=== PATIENT | female | born 1945 | race Caucasian/White ===

== ENCOUNTER 2017-01-17 12:49 | Emergency (ER) | payer MEDICARE ==
[~2017-01-17] VITALS: Ht 154.9 cm; Wt 72.8 kg
[~2017-01-17 12:49] MED LIST: CALC600T44 PO; CYMB60CA PO; DIPH1TAB36 PO; FLON0.053; LEVO.025 PO; NEBI5 PO; OCUV PO; PROT40TA PO; ROSU40 PO; VASO10TA8 PO; VITATAB25 PO; ZYRT10TA12 PO
[2017-01-17 12:55] VITALS: BP 132/67; PULSE 63; RESP 16; TEMP 98.4; O2SAT 97
[2017-01-17] MEDS ORDERED: ATEN50TA PO (13:11)
[2017-01-17] MEDS ORDERED: LEVO25TA4 PO (13:11)
[2017-01-17] MEDS ORDERED: FURO20TA PO (13:11)
[2017-01-17] MEDS ORDERED: FLUT50SP EACH NARE (13:11)
[2017-01-17] MEDS ORDERED: DULO1CAP3 PO (13:11)
[2017-01-17] MEDS ORDERED: ENAL20TA PO (13:11)
[2017-01-17] MEDS ORDERED: VITA1000 PO (13:12)
[2017-01-17] MEDS ORDERED: ROSU1TAB10 PO (13:12)
[2017-01-17] MEDS ORDERED: ADVI200T17 PO (13:12)
[2017-01-17] MEDS ORDERED: PANT40TA3 PO (13:12)
[2017-01-17] MEDS ORDERED: RESP: LIDOCAINE HCL 4% PF 5 ML NEB NEB ONE (13:15)
[2017-01-17] MEDS ORDERED: predniSONE 20 MG TAB PO ONE (13:15)
--- NOTE | 2017-01-17 13:17 | PD ---
HPI Chief Complaint: Respiratory Symptoms Time Seen by Provider: 13:04 Travel History International Travel<30 days: No Contact w/Intl Traveler<30days: No Traveled to known affect area: No History of Present Illness HPI The patient is a 72-year-old female who presents emergency department for cough. The patient states she developed a dry mostly nonproductive cough for one week ago. The patient was prescribed azithromycin by her primary physician, Dr. Sylvia Garcia. The patient took the Zithromax, however, continues to have a dry nonproductive cough. She also complains of back pain secondary to the coughing. She denies any outright shortness of breath, anterior chest pain, nausea, vomiting, or abdominal pain. She denies any current fever, chills , or sweats. She does have a history of pneumonia and bronchitis, denies any history of COPD, CHF, or tobacco use. Symptoms are mild to moderate, there are no current alleviating factors, possibly exacerbated by underlying pneumonia. She also complains of mild fatigue. PFSH Past Medical History Blood Disorders: No Anxiety: Yes Depression: Yes Cancer: No Cardiovascular Problems: No High Cholesterol: Yes Chemotherapy: Yes (2006) Diabetes: No Diminished Hearing: Yes (HEARING AIDES) Endocrine: Yes Gastrointestinal Disorders: Yes (GERD) GERD: Yes Genitourinary: No Hepatitis: No Hiatal Hernia: No Hypertension: Yes Immune Disorder: No Musculoskeletal: Yes (ARTHRITIS) Neurologic: No Psychiatric: Yes Reproductive: No Respiratory: Yes (PNA, bronchitis ) Thyroid Disease: Yes Influenza Vaccination: Yes ?: Not Past Surgical History Abdominal Surgery: Yes (2001 UMBILICAL HERNIA) AICD: No Arteriovenous Shunt: No Body Medical Devices: NONE Gynecologic Surgery: Yes (2005 HYSTERECTOMY ; 76' AND 78' D&C ; 72' TUBAL LIGATION) Hysterectomy: Yes Insulin Pump: No Joint Replacement: No Oral Surgery: Yes (T&A 194) Pacemaker: No Other Surgery: Yes (HIATEL HERNIA) Social History Alcohol Use: Yes Tobacco Use: No Substance Use: No Allergies-Medications (Allergen,Severity, Reaction): Coded Allergies: Lamisil (Unverified Allergy, Mild, STOMACH UPSET, 01/17/17) Oxycontin (Verified Adverse Reaction, Severe, PERMANENT BOWEL PROBLEMS SINCE TAKING MEDICINE, 01/17/17) 01/11/06: PER H/P OF DR SAMUELS RXN TO PAIN MEDICATIONS IS NOT A TRUE ALLERGY BUT A BAD REACTION. Niacin (Unverified Adverse Reaction, Mild, RED FACE, 01/17/17) Premarin (Unverified Adverse Reaction, Mild, CREAM - BAD DREAMS, 01/17/17) Uncoded Allergies: ATELVIA (Adverse Reaction, Mild, BAD DREAMS, 07/09/13) Reported Meds & Prescriptions Reported Meds & Active Scripts Active Ventolin Hfa 18 GM Inh (Albuterol Sulfate) 90 Mcg/Act Aer 2 Puff INH Q6H PRN Deltasone (Prednisone) 20 Mg Tab 40 Mg PO DAILY 4 Days Reported Advil Pm (Ibuprofen-Diphenhydramine) 200-38 Mg Tab 1 Tab PO HS PRN Vitamin D-1000 (Cholecalciferol) 1,000 Unit Tab 50,000 Units PO WEEKLY Rosuvastatin (Rosuvastatin Calcium) 40 Mg Tab 40 Mg PO HS Pantoprazole (Pantoprazole Sodium) 40 Mg Tab 40 Mg PO DAILY Levothyroxine (Levothyroxine Sodium) 25 Mcg Tab 25 Mcg PO DAILY Fluticasone Nasal [place] 50 Mcg/Act Naspr 50 Mcg EACH NARE BID 50 mcg/spray Furosemide 20 Mg Tab 20 Mg PO DAILY Enalapril (Enalapril Maleate) 20 Mg Tab 20 Mg PO DAILY Duloxetine DR (Duloxetine HCl) 60 Mg Capdr 60 Mg PO DAILY Atenolol 50 Mg Tab 50 Mg PO DAILY Review of Systems Except as stated in HPI: all other systems reviewed are Neg General / Constitutional: No: Fever Cardiovascular: No: Chest Pain or Discomfort Respiratory: Positive: Cough Gastrointestinal: No: Nausea, Vomiting Musculoskeletal: Positive: Pain (back pain secondary to coughing) Physical Exam Narrative GENERAL: Awake, alert, very pleasant 72-year-old female who appears her stated age and is in no acute respiratory distress. SKIN: Focused skin assessment warm/dry. HEAD: Atraumatic. Normocephalic. EYES: No injection or drainage. ENT: No nasal bleeding or discharge. Mucous membranes pink and moist. NECK: Trachea midline. No JVD. CARDIOVASCULAR: Regular rate and rhythm. No murmur appreciated. RESPIRATORY: No accessory muscle use. Late expiratory wheeze in the lower lobes bilaterally. Good air movement. GASTROINTESTINAL: Abdomen soft, non-tender, nondistended. No rebound tenderness. MUSCULOSKELETAL: No obvious deformities. No clubbing. No cyanosis. No edema. NEUROLOGICAL: Awake and alert. No obvious cranial nerve deficits. Motor grossly within normal limits. Normal speech. PSYCHIATRIC: Appropriate mood and affect; insight and judgment normal. Data Data Last Documented VS Vital Signs Date Time Temp Pulse Resp B/P Pulse Ox O2 Delivery O2 Flow Rate FiO2 01/17/17 14:26 98 01/17/17 13:26 18 01/17/17 12:55 98.4 63 132/67 Orders Oximetry (01/17/17 13:04) Chest, Single Ap (01/17/17 13:04) Albuterol-Ipratropium Neb (Duoneb Neb) (01/17/17 13:15) Prednisone (Deltasone) (01/17/17 13:15) Lidocaine Pf 4% Neb (Lidocaine Pf 4% Neb (01/17/17 13:15) MDM Medical Decision Making Medical Screen Exam Complete: Yes Emergency Medical Condition: Yes Medical Record Reviewed: Yes Interpretation(s) Chest x-rays unremarkable Last Impressions Chest X-Ray 01/17/17 1304 Signed Impressions: Service Date/Time: Tuesday, January 17, 2017 13:19 - CONCLUSION: No acute disease. Otilio Quan MD FACR Differential Diagnosis Differential diagnoses includes bronchitis, pneumonia, pulmonary edema, congestive heart failure, myopathy, pleural effusion, pulmonary embolism, URI, pneumothorax. Narrative Course The patient's vitals unremarkable and she has already finished Zithromax for presumed pneumonia by her primary physician. The patient was administered prednisone 60 mg orally, duo nebs 2 with respiratory lidocaine and chest x-ray was obtained. Chest x-ray was unremarkable. The patient be discharged home on prednisone and albuterol inhaler. She will be provided a copy of her x-ray report at discharge. She is advised to follow-up with her primary physician, Dr. Garcia, later this week. Diagnosis Primary Impression: Bronchitis Patient Instructions: General Instructions Additional Instructions: Medications as directed. Follow-up with your primary physician. Please provide the patient a copy of her x-ray results at discharge. Return if symptoms worsen or progress. Med/Other Pt SpecificInfo: Prescription(s) given Scripts Albuterol 18 GM Inh (Ventolin Hfa 18 GM Inh)90 Mcg/Act Aer2 Puff INH Q6H PRN ( SHORTNESS OF BREATH) #1 INHALER Ref 0 Prov:Jensen Coppola MD 01/17/17 Prednisone (Deltasone)20 Mg Tab40 Mg PO DAILY 4 Days Ref 0 Prov:Jensen Coppola MD 01/17/17 Disposition: 01 DISCHARGE HOME Condition: Stable Jensen Coppola MD Jan 17, 2017 13:17
[2017-01-17] MEDS: RESP: ALBUTEROL 2.5 MG/IPRATROPIUM 0.5 MG NEB (SCH) INH ×2 (13:21→13:22)
[2017-01-17 13:26] VITALS: RESP 18; O2SAT 97
[2017-01-17] MEDS ORDERED: PRED-503 PO (14:07)
[2017-01-17] MEDS ORDERED: VENTAER INH (14:07)
--- NOTE | 2017-01-17 14:40 | RADRPT ---
EXAM DATE/TIME: 01/17/2017 13:19 [facility] COMPARISON: No previous studies available for comparison. INDICATIONS : Cough and Short of Breath MEDICAL HISTORY : None. SURGICAL HISTORY : None. ENCOUNTER: Initial ACUITY: 1 week PAIN SCORE: 0/10 LOCATION: Bilateral chest FINDINGS: A single view of the chest demonstrates the lungs to be symmetrically aerated without evidence of mas s, infiltrate or effusion. The cardiomediastinal contours are unremarkable. Osseous structures are intact. CONCLUSION: No acute disease. Otilio Quan MD FACR on January 17, 2017 at 14:39 Board Certified Radiologist. This report was verified electronically.
== END 2017-01-17 14:26 | disposition home or self-care (01) ==
LOC: PHED 12:49
DX: J40 Bronchitis, not specified as acute or chronic (principal); I10 Essential (primary) hypertension
CPT/HCPCS: 71010; 94640; 94664; 99284; J7512